=== PATIENT | male | born 1985 | race Two or more races ===

== ENCOUNTER 2017-12-09 11:17 | Emergency (ER) | payer SELFPAY ==
[2017-12-09] MEDS ORDERED: Acetaminophen/oxyCODONE 325-5 MG Tab PO ONE (11:35)
--- NOTE | 2017-12-09 11:40 | EDM.PDOC ---
ED HPI GENERAL MEDICAL PROBLEM - General Chief Complaint: Upper Extremity Injury/Pain Stated Complaint: PINKY FINGER INJURY Time Seen by Provider: 12/09/17 11:31 Source of Information: Reports: Patient History Limitations: Reports: No Limitations - History of Present Illness INITIAL COMMENTS - FREE TEXT/NARRATIVE: 32 year old male presents for evaluation and treatment of injury to the right fifth finger. Patient reports morning was playing racquetball. Reports that he jammed the tip oft he 5th finger against the wall. He reports pain, decreased range of motion, numbness and tingling in the ring finger. No open areas or bruising at this time. No previous injury to this finger. Patient is right-handed. Onset: Today Location: Reports: Upper Extremity, Right Right 5-Little finger Pain Score (Numeric/FACES): 8 - Related Data Allergies Allergy/AdvReac Type Severity Reaction Status Date / Time No Known Allergies Allergy Verified 12/09/17 11:24 Home Meds: Home Meds Acetaminophen/oxyCODONE [Percocet 325-5 MG] 1 each PO Q4HR PRN #15 tab 12/09/17 [Rx] Past Medical History Musculoskeletal History: Reports: Other (See Below) Other Musculoskeletal History: fractured right tibia with pins Social & Family History - Tobacco Use Smoking Status *Q: Current Some Day Smoker Years of Tobacco use: 2 Packs/Tins Daily: 0.2 - Caffeine Use Caffeine Use: Reports: Coffee, Energy Drinks, Soda, Tea - Recreational Drug Use Recreational Drug Use: No Review of Systems - Review of Systems Review Of Systems: See Below Musculoskeletal: Reports: Hand Pain (right hand 5th finger pain and decreased ROM), Other (decreased ROM to the right hand 5th finger) Skin: Denies: Bruising, Wound Neurological: Reports: Numbness, Tingling ED EXAM, GENERAL - Physical Exam Exam: See Below Exam Limited By: No Limitations General Appearance: Alert, WD/WN, No Apparent Distress Respiratory/Chest: No Respiratory Distress Cardiovascular: Normal Peripheral Pulses, Regular Rate, Rhythm Peripheral Pulses: 2+: Radial (R) Extremities: Normal Capillary Refill, Limited Range of Motion (right 5th fingrt) , Other (deformity to the proximal phalnex) Neurological: Alert, Oriented, Normal Cognition Psychiatric: Normal Affect, Normal Mood Skin Exam: Warm, Dry, Normal Color. No: Ecchymosis, Erythema Course - Vital Signs Last Recorded V/S: Last Vital Signs Temp 35.8 C 12/09/17 11:28 Pulse 51 L 12/09/17 14:00 Resp 16 12/09/17 14:00 BP 113/71 12/09/17 11:28 Pulse Ox 96 12/09/17 14:00 - Orders/Labs/Meds Orders: Active Orders 24 hr Category Date Time Status Peripheral IV Care [RC] . DIRECTED Care 12/09/17 12:43 Active Fingers Fifth Digit Rt F9 [CR] Stat Exams 12/09/17 13:24 Taken Peripheral IV Insertion Adult [OM.PC] Routine Oth 12/09/17 12:43 Ordered Meds: Medications Discontinued Medications Generic Name Dose Route Start Last Admin Trade Name Gautamq PRN Reason Stop Dose Admin Fentanyl 100 mcg 12/09/17 12:43 12/09/17 13:15 Sublimaze IVPUSH 12/09/17 12:44 100 mcg ONETIME ONE Administration Midazolam HCl 2 mg 12/09/17 12:43 12/09/17 13:14 Versed 1 Mg/Ml IVPUSH 12/09/17 12:44 2 mg ONETIME ONE Administration Oxycodone/Acetaminophen 1 tab 12/09/17 11:35 12/09/17 11:44 Percocet 325-5 Mg PO 12/09/17 11:36 1 tab ONETIME ONE Administration Sodium Chloride 10 ml 12/09/17 12:43 12/09/17 13:14 Saline Flush FLUSH 10 ml ASDIRECTED PRN Administration Keep Vein Open - Radiology Interpretation Free Text/Narrative:: xray of the right hand shows a dislocation at the PIP joint - Re-Assessments/Exams Free Text/Narrative Re-Assessment/Exam: 12/09/17 12:01 Reviewed the xray results with the patient. He was just given the percocet. Will give several more minutes to work and attempt reduction. Discussed digital block. Patient decided against the block at this time. 12/09/17 12:47 Attempted to reduce the dislocation x 2. Patient had pain and anxiety. I asked Dr. Mae to assist. He has seen the patient. Recommended fentanyl and versed. Will get IV with fenanyl and versed and try again shortly. 12/09/17 13:30 Finger was successfully reduced with traction. Patient was sleeping and tolerated this well. Postreduction films ordered. 12/09/17 14:01 Patient is sleeping at this time. Post reduction xray shows good reduction. I will have nursing staff margarito tape fingers 4 and 5. And apply a finger splint. Will discharge when alert and awake. 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 Do not drive or operate machinery within 12 hours of taking prescription narcotic pain medication. Wear the splint at all times. Margarito tape the fifth and fourth fingers together. May take [id number] Tylenol or Motrin as needed for pain relief. Pain not relieved by [id number] Tylenol or Motrin you may take Percocet 1-2 tabs every 4-6 hours as needed for severe pain. Percocet can be habit-forming, recommend you take as few of these these as needed to control your pain. Do not take more than 4 g of Tylenol from all sources in 1 day. Do not take more than 3 200 mg of ibuprofen sources one day. Do not drive or operate machinery within 12 hours of taking the Percocet. Follow-up with orthopedics within [address] Cha. Please call [phone] Cha. Ice the finger 3-5 times a day for 10 minutes. Please return to the ER if your symptoms change or worsen. - My Orders Last 24 Hours: My Active Orders 12/09/17 12:43 Peripheral IV Care [RC] . DIRECTED Peripheral IV Insertion Adult [OM.PC] Routine 12/09/17 13:24 Fingers Fifth Digit Rt F9 [CR] Stat - Assessment/Plan Last 24 Hours: My Active Orders 12/09/17 12:43 Peripheral IV Care [RC] . DIRECTED Peripheral IV Insertion Adult [OM.PC] Routine 12/09/17 13:24 Fingers Fifth Digit Rt F9 [CR] Stat
[2017-12-09] MEDS ORDERED: fentaNYL 100 MCG/2 ML SDV IVPUSH ONE (12:43)
[2017-12-09] MEDS ORDERED: Sodium Chloride 0.9% 10 ML Syringe FLUSH PRN (12:43)
[2017-12-09] MEDS ORDERED: Midazolam 1 MG/ML 2 ML SDV IVPUSH ONE (12:43)
--- NOTE | 2017-12-09 13:31 | CR ---
Right fifth finger: Four views of the right fifth finger were obtained. Comparison: No previous study. Dislocated PIP joint is seen. Minimal lou of bone is seen off the dorsal corner of the middle phalanx compatible with minimal avulsion fracture. No additional abnormality is seen other than soft tissue swelling. Impression: 1. Dislocated PIP joint with very small avulsion fracture. 2. Soft tissue swelling. Diagnostic code #3
--- NOTE | 2017-12-10 12:17 | CR ---
Right fifth finger: Three views of the right fifth finger were obtained. Comparison: Previous study performed earlier on the same day (11:29 AM). Several small calcifications are noted off the anterior and posterior PIP joint. Previous dislocation has been reduced. Mild soft tissue swelling remains. Impression: 1. Previous dislocation has been reduced. Very minimal avulsion fractures are seen off the anterior and posterior PIP joint. 2. Soft tissue swelling remains. Diagnostic code #2
== END 2017-12-09 14:35 | disposition home or self-care (01) ==
LOC: JD.ED 11:17
DX: S62.616A Displaced fracture of proximal phalanx of right little finger, initial encounter for closed fracture (principal); F17.210 Nicotine dependence, cigarettes, uncomplicated; W23.0XXA Caught, crushed, jammed, or pinched between moving objects, initial encounter
CPT/HCPCS: 26770; 73140; 96374; 96375; 99152; 99284; A9270; J2250; J3010; J7050; 26605